=== PATIENT | male | born 1970 | race Caucasian/White ===

== ENCOUNTER → 2019-10-20 08:30 | Outpatient (CLI) | payer MEDICAID ==
--- NOTE | 2019-10-23 15:28 | ST ---
PATIENT:CHARLEEN RAMAN MEDICAL RECORD: [id number] SEX: M LOCATION:[facility] ORDER #: ADMISSION DATE: 10/20/19 AGE OF PATIENT: 49 REFERRING PHYSICIAN: INTERPRETING PHYSICIAN: JACEK LOVELL MD DATE OF SERVICE: 10/20/2019 PROCEDURE: Nuclear stress testing. INDICATION: Chest pain, abnormal ECG, hypertension, and COPD. He was exercised on standard Lexiscan protocol with 33 mCi of sestamibi injected at peak stress, 11 mCi used previously for rest images. FINDINGS: Gated SPECT reveals preserved ejection fraction at 54% with decreased thickening and brightening through the inferior segments. SPECT imaging Cardiolite was used as myocardial perfusion agent. There is a fixed perfusion defect inferiorly. This includes the basal, mid, apical, and inferior segments. There is no evidence of reversible ischemia. The remaining segments were with homogeneous uptake in rest and stress. OVERALL IMPRESSION: This is mildly abnormal nuclear stress test only showing a fixed perfusion defect inferiorly, partially artifactual from diaphragmatic attenuation, possibly from a previous inferior myocardial infarction. No evidence of reversible ischemia throughout. Preserved ejection fraction at 54%. Continue medical management of the coronary artery disease and cardiac risk factors. TRANSINT:[id number] Voice Confirmation ID: [id number] DOCUMENT ID: [id number] JACEK LOVELL MD at 1528 CC: NIGEL MARTINEZ MD [id number] DICTATION DATE: 10/21/19 1250 EDUCATIONAL PSYCHOLOGY TEACHER: 10/21/19 0319 DEP CLI 10/20/[address] [id number]
== END | disposition home or self-care (01) ==
LOC: D.HCCECHO 08:30
PROVIDERS: ATTEND Internal Medicine Interventional Cardiology
DX: J44.9 Chronic obstructive pulmonary disease, unspecified (principal)

== ENCOUNTER → 2019-10-20 12:02 | Outpatient (CLI) | payer MEDICAID ==
--- NOTE | 2019-10-21 11:17 | EC ---
PATIENT:CHARLEEN RAMAN DATE OF SERVICE: 10/20/19 SEX: M MEDICAL RECORD: [id number] DATE OF : 70 LOCATION:[facility] AGE OF PATIENT: 49 ADMISSION DATE: 10/20/19 REFERRING PHYSICIAN: INTERPRETING PHYSICIAN: JACEK LOVELL MD ECHOCARDIOGRAM REPORT ECHO CHARGES Date: CLINICAL DIAGNOSIS: ECHOCARDIOGRAPHIC MEASUREMENTS (adult normal given) AC root (d.<3.7cm) cm LV Septum d (<1.2 cm> cm Valve Excursion cm LV Septum (systole) cm Left Atria (s.<4.0cm> cm LVPW d(<1.2cm) cm RV (d.<2.3cm) cm LVPW (sytole) cm LV diastole(<5.6CM) cm MV E-F(>70mm/sec) cm LV systole cm LVOT Diameter cm MV exc.(>10mm) cm Est.ejection fraction (50-75%) % DOPPLER: LVIT cm/sec A cm/sec E cm/sec LA cm/sec RVSP mmHg LVOT cm/sec AOP1/2T m/s Asc. Ao cm/sec RVOT cm/sec RA cm/sec PA cm/sec AV Gradient Peak mmHg AV Mean mmHg AV Area cm MV Gradient Peak mmHg MV Mean mmHg MV Area cm COMMENTS: Substance Abuse Clinician: Superintendent Stevedoring: CATHERINE# Pericardial Effusion DATE OF SERVICE: ECHOCARDIOGRAM FINDINGS: 1. Left ventricular chamber size is mildly dilated. Left ventricular systolic function is preserved at 55% to 60%. 2. Left atrium is enlarged at 5.0 cm. Right atrium and right ventricular chamber sizes are as well mildly dilated. 3. Valvular structures have normal structure and motion. ECHOCARDIOGRAM REPORT [id number] CHARLEEN RAMAN 4. Doppler interrogation reveals trace mitral regurgitation, trace tricuspid regurgitation, no other valvular insufficiency or stenosis. Pulmonary systolic pressure is normal estimated at 17 mmHg. 5. No evidence of pericardial effusion or left ventricular thrombus. TRANSINT:[id number] Voice Confirmation ID: [id number] DOCUMENT ID: [id number] JACEK LOVELL MD at 1117 CC: [id number] DICTATION DATE: 10/21/19 1028 IT AUDIT MANAGER: 10/21/19 1033 DEP CLI 10/20/[address] [place] [address]
== END | disposition home or self-care (01) ==
LOC: D.RAD 12:02
PROVIDERS: ATTEND General Practice
DX: J44.9 Chronic obstructive pulmonary disease, unspecified (principal)